=== PATIENT | male | born 1990 | race Caucasian/White ===

== ENCOUNTER 2024-03-01 18:43 | Emergency (ER) | payer BC, SELFPAY ==
[2024-03-01 18:48] VITALS: BP 141/98; PULSE 93; TEMP 36.8; O2SAT 97; BMI 32.5
--- NOTE | 2024-03-01 19:01 | ED_ITS ---
HPI - Nausea/Vomiting/Diarrhea General Chief complaint: Nausea/Vomiting/Diarrhea Stated complaint: Diarrhea Time Seen by Provider: 03/01/24 18:54 Source: patient Mode of arrival: walk-in Limitations: no limitations History of Present Illness HPI Narrative: 33 year old male presents to the ED for diarrhea, chills, body aches. Onset was 02/28/24 with fatigue. He developed the additional sx yesterday. Denies cough, e mesis, urinary sx. Denies CP, SOB. Denies recent travel or antibiotic use. Related Data Home Medications ?Medication ?Instructions ?Recorded ?Confirmed atomoxetine 40 mg capsule 40 mg PO ONCE 03/01/24 03/01/24 buspirone 10 mg tablet 10 mg PO PRN 03/01/24 03/01/24 Allergies Allergy/AdvReac Type Severity Reaction Status Date / Time No Known Drug Allergies Allergy Verified 03/01/24 18:53 Review of Systems ROS Constitutional Reports: chills Ears, nose, mouth, and throat Denies: throat pain or neck pain Cardiovascular Denies: chest pain Respiratory Denies: shortness of breath or cough Gastrointestinal Reports: diarrhea; Denies: abdominal pain, nausea or vomiting Genitourinary Denies: painful urination, urinary frequency, urinary urgency or blood in urine Musculoskeletal Reports: muscle cramps; Denies: back pain or neck pain Neurological Denies: headache Exam Constitutional Vital Signs, click to edit/add: Last Vital Signs Temp 98.2 F 03/01/24 18:48 Pulse 90 03/01/24 20:11 Resp 16 03/01/24 20:11 BP 142/87 H 03/01/24 20:11 Pulse Ox 97 03/01/24 20:11 O2 Del Method Room Air 03/01/24 20:11 Common normals: no apparent distress and oriented x3 General appearance: cooperative HENMT Mouth: oral and palatal mucosa normal, lip normal and tongue normal Eye Common normals: conjunctivae normal and no scleral icterus Neck & C-Spine Common normals: supple Chest Chest: symmetrical chest wall rise Respiratory Common normals: normal respiratory effort and no use of accessory muscles Effort & inspection: able to speak in complete sentences Cardio Common normals: regular rate GI Common normals: Normal to inspection, nondistended, normoactive bowel sounds present, soft to palpation and non-tender Neuro Common normals: oriented x3 Sensorium/orientation: awake and alert Course Vital Signs Vital signs: Vital Signs Temperature 98.2 F 03/01/24 18:48 Pulse Rate 93 H 03/01/24 18:48 Respiratory Rate 16 03/01/24 18:48 Blood Pressure 141/98 H 03/01/24 18:48 Pulse Oximetry 97 03/01/24 18:48 Oxygen Delivery Method Room Air 03/01/24 18:48 Temperature 98.2 F 03/01/24 18:48 Pulse Rate 90 03/01/24 20:11 Respiratory Rate 16 03/01/24 20:11 Blood Pressure 142/87 H 03/01/24 20:11 Pulse Oximetry 97 03/01/24 20:11 Oxygen Delivery Method Room Air 03/01/24 20:11 MDM - Nausea/Vomiting/Diarrhea MDM Narrative Medical decision making narrative: Blood work was unremarkable. He was given IV fluids here in the ED. Stool cultures were pending. Follow up with pcp for a recheck, further evaluation and treatment. Differential Diagnosis Differential diagnosis: Likely food poisoning, gastroenteritis and dehydration Medical Records Attestation: I reviewed the patient's medical records. Lab Data Attestation: I reviewed the patient's lab results. Labs: Lab Results 03/01/24 Range/Units 19:12 WBC 7.4 (4.0-11.0) 10^3/uL RBC 5.58 (4.70-6.10) 10^6/uL Hgb 16.1 (14.0-18.0) g/dL Hct 47.3 (42.0-54.0) % MCV 84.8 (80.0-94.0) fL MCH 28.9 (25.9-34.0) pg MCHC 34.0 (29.9-35.2) g/dL RDW 12.9 (11.0-15.0) % Plt Count 196 (150-450) 10^3/uL MPV 10.4 (9.5-13.5) fL Neut % (Auto) 57.5 (43.0-75.0) % Lymph % (Auto) 28.0 (20.5-60.0) % Greenlee % (Auto) 11.1 (1.7-12.0) % Eos % (Auto) 2.6 (0.9-7.0) % Baso % (Auto) 0.7 (0.2-2.0) % Neut # (Auto) 4.3 (1.4-6.5) 10^3/uL Lymph # (Auto) 2.1 (1.2-3.8) 10^3/uL Greenlee # (Auto) 0.8 (0.3-0.8) 10^3/uL Eos # (Auto) 0.2 (0.0-0.7) 10^3/uL Baso # (Auto) 0.1 (0.0-0.1) 10^3/uL Abs Immat Gran (auto) 0.01 (0.00-0.03) 10^3/uL Imm/Tot Granulo (auto) 0.1 (0.0-0.5) % Sodium 141 (136-145) mmol/L Potassium 4.1 (3.5-5.1) mmol/L Chloride 103 (98-107) mmol/L Carbon Dioxide 31.0 (21.0-32.0) mmol/L Anion Gap 11.1 BUN 12.0 (7.0-18.0) mg/dL Creatinine 1.12 (0.70-1.30) mg/dL Est GFR ( Amer) >60 (>=60) Est GFR (Non-Af Amer) >60 (>=60) BUN/Creatinine Ratio 10.7 Glucose 92 (74-106) mg/dL Calcium 9.2 (8.5-10.1) mg/dL Total Bilirubin 0.4 (0.2-1.0) mg/dL AST 27 (15-37) U/L ALT 53 (16-63) U/L Alkaline Phosphatase 101 (46-116) U/L Total Protein 7.4 (6.4-8.2) g/dL Albumin 4.0 (3.4-5.0) g/dL Globulin 3.4 g/dL Albumin/Globulin Ratio 1.2 Lipase 31.0 (16.0-77.0) U/L Discharge Plan Discharge Stand Alone Forms: Portal Instructions Chief Complaint: Nausea/Vomiting/Diarrhea Clinical Impression: Diarrhea Patient Disposition: Home, Self-Care Time of Disposition Decision: 20:36 Condition: Good Mode of Transportation: Private Vehicle Prescriptions / Home Meds: No Action atomoxetine 40 mg capsule 40 mg PO ONCE buspirone 10 mg tablet 10 mg PO PRN Print Language: Italian Instructions: Acute Diarrhea (ED) Additional Instructions: Return to the ER if your condition worsens. Referrals: SCOTT VALENCIA [Primary Care Provider] - 1 week
[2024-03-01] MEDS: 0.9 % SODIUM CHLORIDE 1,000 ML 999 ML IV (19:10)
[2024-03-01 19:28] LABS: Basophils Absolute Auto 0.1 10^3/uL (0.0-0.1); Basophils Percent Auto 0.7 % (0.2-2.0); Eosinophils Absolute Auto 0.2 10^3/uL (0.0-0.7); Eosinophils Percent Auto 2.6 % (0.9-7.0); Hematocrit 47.3 % (42.0-54.0); Hemoglobin 16.1 g/dL (14.0-18.0); Immature Granulocytes Abs Auto 0.01 10^3/uL (0.00-0.03); Immature Granulocytes Pct Auto 0.1 % (0.0-0.5); Lymphocytes Absolute Auto 2.1 10^3/uL (1.2-3.8); Mean Corpuscular Hemoglobin 28.9 pg (25.9-34.0); Mean Corpuscular Volume 84.8 fL (80.0-94.0); Mean Platelet Volume 10.4 fL (9.5-13.5); Monocytes Absolute Auto 0.8 10^3/uL (0.3-0.8); Monocytes Percent Auto 11.1 % (1.7-12.0); Neutrophils Absolute Auto 4.3 10^3/uL (1.4-6.5); Neutrophils Percent Auto 57.5 % (43.0-75.0); Platelet Count 196 10^3/uL (150-450); Red Blood Count 5.58 10^6/uL (4.70-6.10); Red Cell Distribution Width 12.9 % (11.0-15.0); White Blood Count 7.4 10^3/uL (4.0-11.0)
[2024-03-01 19:44] LABS: Alanine Aminotransferase 53 U/L (16-63); Albumin Globulin Ratio 1.2; Alkaline Phosphatase 101 U/L (46-116); Anion Gap 11.1; Aspartate Amino Transferase 27 U/L (15-37); BUN Creatinine Ratio 10.7; Bilirubin Total 0.4 mg/dL (0.2-1.0); Calcium 9.2 mg/dL (8.5-10.1); Chloride 103 mmol/L (98-107); Estimated GFR (African America >60 (>=60); Estimated GFR (Non-African Ame >60 (>=60); Globulin 3.4 g/dL; Glucose 92 mg/dL (74-106); Potassium 4.1 mmol/L (3.5-5.1); Sodium 141 mmol/L (136-145); Total Protein 7.4 g/dL (6.4-8.2)
[2024-03-01 20:11] VITALS: BP 142/87; PULSE 90; O2SAT 97
[2024-03-02 15:20] LABS: C. Difficile PCR NEGATIVE (NEGATIVE)
== END 2024-03-01 20:57 | disposition home or self-care (01) ==
PROVIDERS: Nurse Practitioner Family; Emergency Provider Emergency Medicine; PCP Family Medicine
DX: R19.7 Diarrhea, unspecified (principal); Z79.899 Other long term (current) drug therapy
CPT/HCPCS: 36415; 80053; 83631; 83690; 85025; 87045; 87046; 87427; 87493; 96360; 96361; 99285